=== PATIENT | female | born 1950 | race Caucasian/White ===

== ENCOUNTER 2024-05-14 16:37 | Inpatient (IN) | payer MEDICARE, MEDICAID, SELFPAY ==
[2024-05-14] VITALS (48 sets, daily range): BP systolic 82–126; BP diastolic 35–71; PULSE 64–80; RESP 2–23; TEMP 35.6–37.4; O2SAT 89–100
--- NOTE | 2024-05-14 17:00 | DI.RAD_ITS ---
Exam(s) XR CHEST 2V PA LATERAL EXAM: XR CHEST 2V PA LATERAL CLINICAL HISTORY: cough. TECHNIQUE: 2D digital imaging was performed. COMPARISON: No exams were available for comparison FINDINGS: 2 views: Heart size is normal. The mediastinum is not widened. Lungs are clear. No infiltrates nor pleural effusions. Mild bilateral hyperinflation noted. IMPRESSION: No acute pulmonary findings.Hyperinflation. DATA REPOSITORY: RADIATION DOSE DELIVERED:
--- NOTE | 2024-05-14 17:09 | ED.GENADUL_ITS ---
Discharge Plan Discharge Details Chief Complaint: RespSymp Admit Date/Time: 05/14/24 19:54 Admit Provider: Milton Sullivan Attending Provider: Milton Sullivan Primary Care Provider: Fox Dubois ED Provider: Ar Polanco Discharge Data Discharge Date/Time-TO BE ENTERED AT DEPARTURE: 05/14/24 21:29 HPI General Date/Time Provider Initiated Documentation: 05/14/24 17:03 . HPI Narrative: 73 year-old female presents to ED today by POV/ambulating with her daughter with a chief complaint of 72 hours of flu-like symptoms, weakness, shortness of breath, mild nausea, poor PO intake. Quality described as generalized malaise, no radiation to chest pain, respiratory distress, intractable vomiting, black/bloody diarrhea, high fevers. Severity is described as moderate. Palliating factors include nothing specific attempted. Provoking factors include nothing specific- has sick contacts. Events leading up to the incident/Associated Symptoms: Patient has 40 year smoking history. Patient not anticoagulated. Related Data Home Medications ?Medication ?Instructions ?Recorded ?Confirmed alprazolam 0.5 mg tablet 0.5 mg PO TID 05/14/24 05/14/24 atenolol 50 mg tablet 50 mg PO DAILY 05/14/24 05/14/24 tramadol 50 mg tablet 50 mg PO BID 05/14/24 05/14/24 Allergies Allergy/AdvReac Type Severity Reaction Status Date / Time Sulfa (Sulfonamide Allergy Severe Swelling/Ed Verified 05/14/24 17:06 Antibiotics) jose erythromycin base Allergy Intermediate unknow Verified 05/14/24 17:06 amoxicillin Allergy Mild Unknown Unverified 05/14/24 17:06 clavulanic acid Allergy Mild Unknown Unverified 05/14/24 17:06 meperidine (From Demerol) Allergy Mild Skin Rash Verified 05/14/24 17:06 morphine Allergy Mild Unknown Verified 05/14/24 17:06 NSAIDS (Non-Steroidal AdvReac Intermediate GI Bleeding Verified 05/14/24 17:06 Anti-Inflamma General Stated Complaint: RespSymp RUTHIE: 3 Review of Systems All systems reviewed & are unremarkable except as noted in HPI and below Exam Narrative Exam Narrative: GENERAL APPEARANCE: Well-nourished, non-toxic, awake and alert, atraumatic, no acute distress. SKIN: Warm, pink, dry, intact, without rashes/lesions/ulcerations. HEAD: Normocephalic, atraumatic, normal hair distribution for gender/age. EYES: Normal conjunctiva, no exudates on lids/lashes. ENT: Nares patent, no circumoral cyanosis, no facial swelling NECK: Supple, trachea midline, painless cervical ROM. LUNGS/CHEST: Lungs - rhonchorous at bases, mild expiratory wheezes, non-labored respirations, normal A/P diameter, symmetrical expansion, no chest wall deformity HEART (CV/PV): Regular rate and rhythm without murmur, no peripheral edema, no JVD. ABDOMEN: Soft, non-distended, no guarding. MSK: Normal ROM, no swelling/deformity to bilateral UEs or LEs, moving all extremities without weakness, no cyanosis, spine midline without tenderness, normal curvature. NEURO: Mental Status AAOx4 - alert to person, place, time, events No facial droop, no forehead involvement. Motor: No focal weakness - strength 5/5 in bilateral UEs and LEs, proximal and distal, symmetric. Sensory: sensation intact to light touch globally. Gait normal: patient ambulated without ataxia into ED room. PSYCH: euthymic, cooperative, pleasant, appropriate speech Course Vital Signs Vital signs: Vital Signs Temperature 37.4 C 05/14/24 16:55 Pulse 73 05/14/24 16:55 Respiratory Rate 23 05/14/24 16:55 Blood Pressure 107/71 05/14/24 16:55 Pulse Oximetry 89 L 05/14/24 16:55 Temperature 37.4 C 05/14/24 16:55 Temperature Source Oral 05/14/24 16:55 Pulse 73 05/14/24 16:55 Respiratory Rate 23 05/14/24 16:55 Blood Pressure 107/71 05/14/24 16:55 Blood Pressure Position Sitting 05/14/24 16:55 Pulse Oximetry 89 L 05/14/24 16:55 Oxygen Delivery Method Room Air 05/14/24 16:55 Oxygen Flow Rate 0 05/14/24 16:55 Pain Level 0 05/14/24 16:55 Medical Decision Making This dictation utilizes [id number] dictation software and may contain unedited grammatical errors. 73 year-old female presents to ED today by POV/ambulating with her daughter with a chief complaint of 72 hours of flu-like symptoms, weakness, shortness of breath, mild nausea, poor PO intake. Quality described as generalized malaise, no radiation to chest pain, respiratory distress, intractable vomiting, black/bloody diarrhea, high fevers. Severity is described as moderate. Palliating factors include nothing specific attempted. Provoking factors include nothing specific- has sick contacts. Events leading up to the incident/Associated Symptoms: Patient has 40 year smoking history. Patients' medical history: Denies known COPD. Family and social history: 40-year smoking history. Pertinent exam findings / vital signs include diffuse rhonchi at bases, mild expiratory wheezes, hypoxia, mildly soft blood pressure, benign abdomen, neuro intact, no fever. Differential / pathologies of concern include COPD exacerbation, pneumonia, viral syndrome, hypoxic respiratory failure. Diagnostic studies of: -CBC, VBG, lactate, CMP, magnesium, lipase, COVID/flu/RSV PCR, chest x-ray. -CBC shows no leukocytosis, no left shift -VBG shows no respiratory acidosis or alkalosis -Lactate negative -CMP is unremarkable -Magnesium within normal is -Lipase negative -COVID/flu/RSV negative -Chest x-ray shows no pneumonia shows likely COPD Interventions of: -DuoNeb, IV methylprednisolone, O2 by SD. ED Course/Assessment/Plan: 73-year-old female presents with shortness of breath, is found to be hypoxic at 88% at rest, has a 4-year smoking history, negative for pneumonia on chest x- ray, no evidence of flu or COVID, she may have acute viral syndrome exacerbated by her long-term smoking history, diagnosis of acute hypoxic respiratory failure COPD exacerbation, I spoke with Dr. Sullivan who admitted the patient at 1945. Patient receiving maintenance fluids, will get PO antibiotics on the floor. Disposition of COPD exacerbation, acute hypoxic respiratory failure. Patient verbalized understanding of the plan and return to ED criteria and engaged in shared decision making. Medical Records Medical records reviewed: Yes I reviewed the patient's medical records. Imaging Data Radiologic Study: Attestation: I personally reviewed and interpreted this imaging study as follows: Imaging: X-Ray Radiologist's impression: Exam: XR Chest Exam date and time: 05/14/2024 5:43 PM Age: 73 years old Clinical indication: Other: Coiugh TECHNIQUE: Imaging protocol: Radiologic exam of the chest. Views: 2 views. COMPARISON: No relevant prior studies available. FINDINGS: Lungs: The lungs are slightly hyperaerated. There is increase in the retrosternal airspace. On the lateral view there appears to be some flattening of the hemidiaphragms. Suspect COPD. Pleural spaces: Unremarkable. No pleural effusion. No pneumothorax. Heart/Mediastinum: Unremarkable. No cardiomegaly. Bones/joints: Unremarkable. IMPRESSION: No evidence for acute abnormality in the chest. Probable COPD. Dictated and Authenticated by: Chaparrita Gunn MD. Lab Data Lab results reviewed: Yes I reviewed the patient's lab results. Labs: Laboratory Tests Range/Units 05/14/24 05/14/24 17:14 17:22 WBC (4.4-10.8) 10^3/uL 7.96 RBC (3.93-5.22) 10^6/uL 4.27 Hgb (11.2-15.7) g/dL 13.8 Hct (36.0-46.0) % 41.6 MCV (80-95) fL 97 H MCH (27.0-33.0) pg 32.3 MCHC (32.0-36.0) % 33.2 RDW (11.7-14.6) % 11.9 Plt Count (130-400) 10^3/uL 286 MPV (8.0-11.0) fL 8.7 Immature Gran % % 0.3 Neutrophils % % 59.6 Lymphocytes % % 25.1 Monocytes % % 12.6 Eosinophils % % 1.9 Basophils % % 0.5 Nucleated RBC % (0.0-0.3) % 0.0 Absolute Neutrophils (1.2-6.7) 10^3/uL 4.75 Absolute Lymphocytes (1.2-3.4) 10^3/uL 2.00 Absolute Monocytes (0.1-0.8) 10^3/uL 1.00 H Absolute Eosinophils (0.0-0.7) 10^3/uL 0.15 Absolute Basophils (0.0-0.2) 10^3/uL 0.04 VBG pH (7.31-7.41) 7.39 VBG pCO2 (41-51) mmHg 51 VBG pO2 mmHg 28 VBG HCO3 (23-28) mmol/L 30 H VBG Total CO2 (24-29) mmol/L 27 VBG O2 Saturation % 52 VBG Base Excess (-2-3) mmol/L 5 H VBG Lactate (<or=2.0) mmol/L 0.7 Sodium (136-145) mmol/L 141 Potassium (3.5-5.1) mmol/L 4.2 Chloride (98-107) mmol/L 104 Carbon Dioxide (21.0-32.0) mmol/L 32.0 Anion Gap (3-11) mmol/L 5.0 BUN (7-18) mg/dL 12 Creatinine (0.55-1.02) mg/dL 0.8 Est GFR (CKD-EPI 2020) (mL/min/1.73m2) 78.24 Glucose (74-106) mg/dL 96 Calcium (8.5-10.1) mg/dL 9.1 Magnesium (1.8-2.4) mg/dL 2.3 Total Bilirubin (0.2-1.0) mg/dL 0.40 AST (15-37) U/L 13 L ALT (14-59) U/L 23 Alkaline Phosphatase (46-116) U/L 97 Total Protein (6.4-8.2) g/dL 7.3 Albumin (3.4-5.0) g/dL 3.2 L Lipase (<78) U/L 21 COVID-19 Source Nasopharynx SARS-CoV-2 (PCR) (Negative) Negative Influenza Type A (PCR) (Negative) Negative Influenza Type B (PCR) (Negative) Negative RSV (PCR) (Negative) Negative Quality:SDOH Health Related Social Needs: No Data to Display PFSH All Active Problems (Updated 05/14/24 @ 19:52 by Milton Sullivan MD) COPD (chronic obstructive pulmonary disease) (Chronic) Social History Smoking/Tobacco Use Status: Former Tobacco Use Quit Date: 04/05/24 Tobacco: How many years used: 40 Smoking risk assessment performed?: Yes Alcohol Intake: never Drug use: Never
[2024-05-14 17:31] LABS: Abs Immature Grans 0.02 10^3/uL (0.0-0.06); Absolute Basophil Count 0.04 10^3/uL (0.0-0.2); Absolute Eosinophil Count 0.15 10^3/uL (0.0-0.7); Absolute Neutrophil Count 4.75 10^3/uL (1.2-6.7); BE (Venous) 5 mmol/L (-2-3); Basophils % 0.5 %; Eosinophils % 1.9 %; HCO3 (Venous) 30 mmol/L (23-28); HCT 41.6 % (36.0-46.0); HGB 13.8 g/dL (11.2-15.7); Immature Grans % 0.3 %; Lactate 0.7 mmol/L (<or=2.0); Lymphocytes % 25.1 %; MCH 32.3 pg (27.0-33.0); MCHC 33.2 % (32.0-36.0); MCV 97 fL (80-95); MPV 8.7 fL (8.0-11.0); Monocytes % 12.6 %; Neutrophils % 59.6 %; O2 Sat (Venous) 52 %; Platelet Count 286 10^3/uL (130-400); RBC 4.27 10^6/uL (3.93-5.22); RDW 11.9 % (11.7-14.6); RDW-SD 43.2 fL; TCO2 (Venous) 27 mmol/L (24-29); WBC 7.96 10^3/uL (4.4-10.8); pCO2 (Venous) 51 mmHg (41-51); pH (Venous) 7.39 (7.31-7.41); pO2 (Venous) 28 mmHg
[2024-05-14 17:56] LABS: ALT 23 U/L (14-59); AST 13 U/L (15-37); Albumin 3.2 g/dL (3.4-5.0); Alkaline Phosphatase 97 U/L (46-116); BUN 12 mg/dL (7-18); CREATININE 0.8 mg/dL (0.55-1.02); Calcium 9.1 mg/dL (8.5-10.1); Chloride 104 mmol/L (98-107); Estimated GFR 78.24 (mL/min/1.73m2); Glucose 96 mg/dL (74-106); Lipase 21 U/L (<78); Magnesium 2.3 mg/dL (1.8-2.4); Potassium 4.2 mmol/L (3.5-5.1); Sodium 141 mmol/L (136-145); Total Protein 7.3 g/dL (6.4-8.2)
[2024-05-14 17:56] LABS: COVID-19 PCR Negative (Negative); Influenza A PCR Negative (Negative); Influenza B PCR Negative (Negative); RSV PCR Negative (Negative)
[2024-05-14] MEDS: Albuterol/Ipratropium 3 ML UPD VIAL UPD ×2 (18:03→22:00)
[2024-05-14] MEDS: Acetaminophen 500 MG TAB 1000 MG PO (18:03)
[2024-05-14 18:10] LABS: Source Nasopharynx
--- NOTE | 2024-05-14 18:40 | DI.VRAD_ITS ---
PROCEDURE INFORMATION: Exam: XR Chest Exam date and time: 05/14/2024 5:43 PM Age: 73 years old Clinical indication: Other: Coiugh TECHNIQUE: Imaging protocol: Radiologic exam of the chest. Views: 2 views. COMPARISON: No relevant prior studies available. FINDINGS: Lungs: The lungs are slightly hyperaerated. There is increase in the retrosternal airspace. On the lateral view there appears to be some flattening of the hemidiaphragms. Suspect COPD. Pleural spaces: Unremarkable. No pleural effusion. No pneumothorax. Heart/Mediastinum: Unremarkable. No cardiomegaly. Bones/joints: Unremarkable. IMPRESSION: No evidence for acute abnormality in the chest. Probable COPD. Dictated and Authenticated by: Chaparrita Gunn MD. Orderin Collin Joyner MD
[2024-05-14] MEDS: Normal Saline 1,000 ML 150 ML IV (18:48)
[2024-05-14] MEDS: methylPREDNISolone SUCC 125 MG VIAL IVP (18:48)
--- NOTE | 2024-05-14 19:45 | HPE_ITS ---
Date of service: 05/14/24 Time of Service: 19:45 Assessment and Plan Assessment and plan (1) COPD (chronic obstructive pulmonary disease): Status: Chronic Assessment and plan: COPD, apparently a new diagnosis. Don't see any LRI but will call a bronchitis. Will continue nebs and steroids and add oral antibiotics (states she has taken Zithro without trouble). After stabilizes would benefit from PFTS to formally establish diagnosis. Reviewed ADs, requests Full Code. History of Present Illness History of Present Illness Chief Complaint: SOB, cough Narrative: 73 female long time smoker, reports one week of productive cough, chest tightness, runny nose, sore throat, anorexia. Has an oximeter at home (from [employer]), usual sats high 90s, noted to now be high 80s so came to ER for evaluation. Here in ER findings of note for temp 37.4, sats variable from high 80s to mid-90s, requiring supplemental O2; reported modest wheeze; white count 7 and negative CXR. Viral swab triple negative. Given duoneb and Solumedrol. I was asked to evaluate for admission. States she feels less tight, though not back to baseline. States she has never been given a diagnosis of COPD. My review of CXR shows hyperinflation and some flattening right hemidiaphragm. Review of Systems Narrative: per HPI PFSH All Active Problems (Updated 05/14/24 @ 19:52 by Milton Sullivan MD) COPD (chronic obstructive pulmonary disease) (Chronic) Social History Smoking/Tobacco Use Status: Former Tobacco Use Quit Date: 04/05/24 Tobacco: How many years used: 40 Smoking risk assessment performed?: Yes Alcohol Intake: never Drug use: Never Meds Allergies and Home Medications Allergies Allergy/AdvReac Type Severity Reaction Status Date / Time Sulfa (Sulfonamide Allergy Severe Swelling/Ed Verified 05/14/24 17:06 Antibiotics) jose erythromycin base Allergy Intermediate unknow Verified 05/14/24 17:06 amoxicillin Allergy Mild Unknown Unverified 05/14/24 17:06 clavulanic acid Allergy Mild Unknown Unverified 05/14/24 17:06 meperidine (From Demerol) Allergy Mild Skin Rash Verified 05/14/24 17:06 morphine Allergy Mild Unknown Verified 05/14/24 17:06 NSAIDS (Non-Steroidal AdvReac Intermediate GI Bleeding Verified 05/14/24 17:06 Anti-Inflamma Home Medications ?Medication ?Instructions ?Recorded ?Confirmed ?Type alprazolam 0.5 mg tablet 0.5 mg PO TID 05/14/24 05/14/24 History atenolol 50 mg tablet 50 mg PO DAILY 05/14/24 05/14/24 History tramadol 50 mg tablet 50 mg PO BID 05/14/24 05/14/24 History Exam Narrative Exam Narrative: 126/49, 79, 37.4, 16, 90 (2L). HEENT atraumatic; neck supple; lungs diffuse coarse wheeze; heart RRR; abdomen soft and NT; extremities w/o edema; neuro Ox3, lucid, moves all 4s Results Labs 05/14/24 17:22 05/14/24 17:22 Labs: Laboratory Results - last 24 hr 05/14/24 05/14/24 17:14 17:22 WBC 7.96 RBC 4.27 Hgb 13.8 Hct 41.6 MCV 97 H MCH 32.3 MCHC 33.2 RDW 11.9 Plt Count 286 MPV 8.7 Immature Gran % 0.3 Neutrophils % 59.6 Lymphocytes % 25.1 Monocytes % 12.6 Eosinophils % 1.9 Basophils % 0.5 Nucleated RBC % 0.0 Absolute Neutrophils 4.75 Absolute Lymphocytes 2.00 Absolute Monocytes 1.00 H Absolute Eosinophils 0.15 Absolute Basophils 0.04 VBG pH 7.39 VBG pCO2 51 VBG pO2 28 VBG HCO3 30 H VBG Total CO2 27 VBG O2 Saturation 52 VBG Base Excess 5 H VBG Lactate 0.7 Sodium 141 Potassium 4.2 Chloride 104 Carbon Dioxide 32.0 Anion Gap 5.0 BUN 12 Creatinine 0.8 Est GFR (CKD-EPI 2020) 78.24 Glucose 96 Calcium 9.1 Magnesium 2.3 Total Bilirubin 0.40 AST 13 L ALT 23 Alkaline Phosphatase 97 Total Protein 7.3 Albumin 3.2 L Lipase 21 COVID-19 Source Nasopharynx SARS-CoV-2 (PCR) Negative Influenza Type A (PCR) Negative Influenza Type B (PCR) Negative RSV (PCR) Negative Last Vital Signs Temp 37.4 C 05/14/24 17:34 Pulse 79 05/14/24 19:40 Resp 16 05/14/24 19:40 BP 126/49 L 05/14/24 19:31 Pulse Ox 90 L 05/14/24 19:40 Time Spent Time spent with Patient: 40-54 minutes Time was spent: preparing to see the patient(eg.review tests), obtaining and/or reviewing separately otained hiistory, ordering medications,tests, procedures, referring, communicating with other health prompt care rn and indepentently interpreting results
[2024-05-14] MEDS: Azithromycin 250 MG TAB PO (22:21)
[2024-05-14] MEDS: ALPRAZolam 0.5 MG TAB PO (22:21)
[2024-05-15 02:00] VITALS: PULSE 77; RESP 18; RESP 2; RESP 9; O2SAT 98
[2024-05-15] MEDS: Albuterol/Ipratropium 3 ML UPD VIAL UPD ×2 (02:00→08:05)
[2024-05-15 02:07] VITALS: PULSE 76; RESP 18; RESP 2; RESP 9; O2SAT 97
[2024-05-15 02:15] VITALS: O2SAT 97
[2024-05-15] MEDS: Normal Saline 1,000 ML 150 ML IV (02:41)
--- NOTE | 2024-05-15 03:15 | W.PC.ACHO ---
Registration Status: Primary Language: Preferred Language: ED Information & Data Chief Complaint RespSymp 05/14/24 17:10 Triage Note Pt has been experiencing 05/14/24 16:55 fever and flu-like symptoms. Pt has been around children with flu, norovirus, Covid, and pneumonia. Pt has been taking tylenol. Pt reports she has productive cough, yellow sal. Pt concerned she may have pneumonia. Pt former smoker as a week ago. Most Recent Vital Signs Temperature 35.6 C L 05/14/24 21:35 Temperature Source Temporal Artery Scan 05/14/24 21:35 Pulse 76 05/15/24 02:07 Pulse Rhythm Regular 05/14/24 21:32 Pulse 75 05/14/24 21:10 Respiratory Rate 18 05/15/24 02:07 Respiratory Effort Non-Labored 05/14/24 21:32 Respiratory Depth Normal 05/14/24 21:32 Respiratory Pattern Normal 05/14/24 21:32 Blood Pressure 116/65 05/14/24 21:35 Blood Pressure Mean 64 05/14/24 21:01 Blood Pressure Position Sitting 05/14/24 16:55 Pulse Oximetry 97 05/15/24 02:15 Respiratory End-tidal CO2 39 05/14/24 21:10 Oxygen Delivery Method Nasal Cannula 05/15/24 02:15 Oxygen Flow Rate 1 05/15/24 02:15 Pain Level 8 05/14/24 18:03 Comment map 80 05/14/24 21:[address] Sullivan aware of BP; pt asymptomatic, lying supine, resting. 05/14/24 20:31 Allergies Sulfa (Sulfonamide Antibiotics) Allergy (Severe, Verified 05/14/24 17:06) Swelling/Edema erythromycin base Allergy (Intermediate, Verified 05/14/24 17:06) unknow amoxicillin Allergy (Mild, Unverified 05/14/24 17:06) Unknown clavulanic acid Allergy (Mild, Unverified 05/14/24 17:06) Unknown meperidine (From Demerol) Allergy (Mild, Verified 05/14/24 17:06) Skin Rash morphine Allergy (Mild, Verified 05/14/24 17:06) Unknown NSAIDS (Non-Steroidal Anti-Inflamma Adverse Reaction (Intermediate, Verified 05/14/24 17:06) GI Bleeding Precautions Isolation Droplet precaution 05/14/24 17:00 Active Medications Generic Name Dose Route Start Last Admin Trade Name Nate PRN Reason Stop Dose Admin Albuterol/Ipratropium 3 ml 05/14/24 20:00 05/15/24 02:00 Albuterol/Ipratropium 3 Ml Upd Vial UPD 3 ml Q6H REBEKAH Administration Alprazolam 0.5 mg 05/14/24 22:00 05/14/24 22:21 Alprazolam 0.5 Mg Tab PO 0.5 mg TID REBEKAH Administration Azithromycin 250 mg 05/14/24 22:00 05/14/24 22:21 Azithromycin 250 Mg Tab PO 250 mg HS REBEKAH Administration Sodium Chloride 1,000 mls @ 150 mls/hr 05/14/24 18:45 05/15/24 02:41 Saline 1000ml Bag IV 150 mls/hr INFUSION REBEKAH Administration Tramadol HCl 50 mg 05/14/24 22:00 05/14/24 23:07 Tramadol 50 Mg Tab PO Not Given BID REBEKAH IV IV Catheter Type [Left Peripheral IV Antecubital] IV Catheter Gauge [Left 18 Antecubital] Diet Orders Category Date Time Status Regular/Normal [DIET] Nutrition 05/15/24 Breakfast Active Diagnostics 05/14/24 05/14/24 Range/Units 17:22 17:14 WBC 7.96 (4.4-10.8) 10^3/uL RBC 4.27 (3.93-5.22) 10^6/uL Hgb 13.8 (11.2-15.7) g/dL Hct 41.6 (36.0-46.0) % MCV 97 H (80-95) fL MCH 32.3 (27.0-33.0) pg MCHC 33.2 (32.0-36.0) % RDW 11.9 (11.7-14.6) % Plt Count 286 (130-400) 10^3/uL MPV 8.7 (8.0-11.0) fL Immature Gran % 0.3 % Neutrophils % 59.6 % Lymphocytes % 25.1 % Monocytes % 12.6 % Eosinophils % 1.9 % Basophils % 0.5 % Nucleated RBC % 0.0 (0.0-0.3) % Absolute Neutrophils 4.75 (1.2-6.7) 10^3/uL Absolute Lymphocytes 2.00 (1.2-3.4) 10^3/uL Absolute Monocytes 1.00 H (0.1-0.8) 10^3/uL Absolute Eosinophils 0.15 (0.0-0.7) 10^3/uL Absolute Basophils 0.04 (0.0-0.2) 10^3/uL VBG pH 7.39 (7.31-7.41) VBG pCO2 51 (41-51) mmHg VBG pO2 28 mmHg VBG HCO3 30 H (23-28) mmol/L VBG Total CO2 27 (24-29) mmol/L VBG O2 Saturation 52 % VBG Base Excess 5 H (-2-3) mmol/L VBG Lactate 0.7 (<or=2.0) mmol/L Sodium 141 (136-145) mmol/L Potassium 4.2 (3.5-5.1) mmol/L Chloride 104 (98-107) mmol/L Carbon Dioxide 32.0 (21.0-32.0) mmol/L Anion Gap 5.0 (3-11) mmol/L BUN 12 (7-18) mg/dL Creatinine 0.8 (0.55-1.02) mg/dL Est GFR (CKD-EPI 2020) 78.24 (mL/min/1.73m2) Glucose 96 (74-106) mg/dL Calcium 9.1 (8.5-10.1) mg/dL Magnesium 2.3 (1.8-2.4) mg/dL Total Bilirubin 0.40 (0.2-1.0) mg/dL AST 13 L (15-37) U/L ALT 23 (14-59) U/L Alkaline Phosphatase 97 (46-116) U/L Total Protein 7.3 (6.4-8.2) g/dL Albumin 3.2 L (3.4-5.0) g/dL Lipase 21 (<78) U/L COVID-19 Source Nasopharynx SARS-CoV-2 (PCR) Negative (Negative) Influenza Type A (PCR) Negative (Negative) Influenza Type B (PCR) Negative (Negative) RSV (PCR) Negative (Negative) [id number] Documentation Fingerstick Glucose Start: 05/14/24 18:36 Freq: Status: Active Protocol: Activity Type Activity Date Activity User E-sign Co-sign Detail Recorded Client Recorded Date Recorded By Document 05/14/24 18:35 BKG DAEMON(3) [id number] 05/14/24 18:36 BKG DAEMON(4) Intake and Output - 24 Hour Total 05/14/24 16:37 thru 05/15/24 02:35 Intake Total 1020 Balance 1020 Weight 71.214 kg Intake: IV 1020 Other: Urine Color Yellow Urine Appearance Clear Falls Risk Assessment History of Falls No History 05/14/24 21:32 Contributing Factors No Factors 05/14/24 21:32 Ambulatory Aids Independent 05/14/24 21:32 Tubes/Lines W/no contributing factors 05/14/24 21:32 Gait Evaluation No gait disturbance 05/14/24 21:32 Cognition No cognitive impairment 05/14/24 21:32 Fall Total Score 10 05/14/24 21:32 Level of Risk Standard/Low Risk 05/14/24 21:32 Problems (Last Reviewed 05/14/24 @ 19:50 by Milton Sullivan MD) COPD (chronic obstructive pulmonary disease) (Chronic) v v v v v v v v v Sending and/or Receiving Nurses: Please use comment section below to note any information pertinent to the patient hand-off not included above. Information / Comments: coughing up yellow sputum, feeling winded quit smoking about a week ago xray shows signs of COPD, neg for pneumonia blood work neg, swabs, neg arrived with O2Sat of 88%, on 2L NC Satting 93-94%, pt states baseline is 99% ra A&O, not dizzy, broke elbow awhile ago and hasn't regained strength back, states this is the weakest she's ever been could use a PT consult NSR with good pulses RR regular, non-labored BP soft 111/43 running NS @ 150mls/hr 18g LAC Report received from: Marisol RN @ [id number]
[2024-05-15] MEDS: methylPREDNISolone SUCC 40 MG VIAL IVP (06:36)
[2024-05-15] MEDS: Normal Saline Flush 10 ML SYR IVP (06:36)
[2024-05-15 07:40] VITALS: BP 121/63; PULSE 77; RESP 19; TEMP 36.2; O2SAT 95
[2024-05-15 08:05] VITALS: PULSE 88; RESP 16; RESP 2; RESP 9; O2SAT 97
[2024-05-15 08:14] VITALS: PULSE 80
[2024-05-15] MEDS: traMADol 50 MG TAB PO (08:22)
[2024-05-15] MEDS: ALPRAZolam 0.5 MG TAB PO (08:39)
--- NOTE | 2024-05-15 09:04 | PDOC.CMIN ---
Date of service: 05/15/24 Time of Service: 09:05 Care Management Initial Assmt Initial Assessment Reason for Hospitalization: COPD Functional Status/Living Situation Patient Presentation: Patricia presented to the ED yesterday evening with c/o one week of productive cough, chest tightness, runny nose, loss of appetite. Per her home oximeter her O2 sats were in the high 80s, so she presented to the ER. Patricia reported to that she has been living with her daughter and 4 children who are school aged and all sick. Patricia was sitting up on the edge of the bed when met with her. She has many community concerns. Patricia is recently homeless, and has been staying with her daughter, here in [facility], in her subsidized apartment. 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 Patricia has many concerns over loss of her apartment and car. Town of Residence: [place], [place] Significant Other/Family: Local (daughters Xiomy and Brit) Natural Supports: daughter and her family Employment Status: Disabled Instrumental Activities of Daily Living (ADLs): Independent Activities/Hobbies/SocialSupport: likes photography and hiking Medications Medication Management: No Issues/Barriers identified Advance Directives Advance Directives: Do you have an Advance Directive: AD On File at [facility]: N 05/14/24 16:38 Date Asked 05/14/24 05/14/24 16:50 AD Date Reviewed COLST On File at [facility] COLST Date Scanned Code Status Resuscitation Status Full Code Insurance Coverage/Financial Issues Insurance: Medicare Part A & B [facility] Dual MCR/AMOL plan Financial Issues: as above Care Team Visit Care Team Role Provider Type Fox Dubois DO Primary Care Provider CONSULTING PHYSICIAN JOEY Michael Emergency Provider PHYSICIANS PATIENT SAFETY SITTER Milton Sullivan MD Admit Provider [facility] STAFF PHYSICIAN Attending Provider Discharge Potential Discharge Needs: PCP F/U Appt and Other (establish with a wafer polishing lead worker) Anticipated Barriers to Discharge: None Identified Patient/Family Education Needs: Review discharge instructions, discuss Ask Me Three Transportation: Private vehicle Plan: Patricia was discharged home with no new services. She was given many resources by JODEE - Robert, JAVI, NEAL - referral sent-, COA, ip litigation paralegal. She will f/u with her PCP and establish with a wafer polishing lead worker. She was transported home by her daughter. Social Determinants of Health Screening Social Determinants of Health last assessed: 05/15/24 Will the Patient Participate in the Screening?: Declined to provide Do you worry about having a steady place to live?: no Problems where you live: no known problems In the past 12 months, have you had to go without electric, gas, oil or water in your home?: no Have you or anyone in your house had to go without enough food to eat?: no Has lack of transportation kept you from medical appointments or from doing things needed for daily living?: no Has anyone in your life made you feel unsafe or unsupported?: no How hard is it for you to pay for the very basics like food, housing, medical care, and heating? Would you say it is:: Not hard at all Do you want help finding or keeping work or a job?: I do not need or want help If for any reason you need help with day-to-day activities such as bathing, preparing meals, shopping, managing finances, etc., do you get the help you need?: I don?t need any help How often do you feel lonely or isolated from those around you?: Never Do you speak a language other than Somali at home?: No Does the patient want assistance with any of the above?: No Social Determinants of Health Comments(SDNC Details): would like to answer during the day [facility] All Active Problems (Updated 05/14/24 @ 19:52 by Milton Sullivan MD) COPD (chronic obstructive pulmonary disease) (Chronic) Social History Smoking/Tobacco Use Status: Former Tobacco Use Quit Date: 04/05/24 Tobacco: How many years used: 40 Smoking risk assessment performed?: Yes Alcohol Intake: never Drug use: Never Readmission Within the Past 30 Days Yes or No: No
[2024-05-15] MEDS: predniSONE 20 MG TAB 40 MG PO (09:46)
[2024-05-15] MEDS: Atenolol 50 MG TAB 25 MG PO (09:46)
[2024-05-15] MEDS: Umeclidinium 7 CAP INHALER 1 CAP IH (11:46)
[2024-05-15] MEDS: Albuterol HFA 8 GM 60 PUFF INH IH (11:46)
--- NOTE | 2024-05-15 13:39 | DSE_ITS ---
Date of service: 05/15/24 Time of Service: 13:39 DS: Diagnosis Discharge Diagnosis (1) COPD (chronic obstructive pulmonary disease): Status: Chronic Discharge Plan Disposition Patient Disposition: Home Condition: Good Discharge Details Reason For Visit: COPD Admit Date/Time: 05/14/24 19:54 Admit Provider: Milton Sullivan Attending Provider: Milton Sullivan [facility] Course: 73 female smoker with possible history of asthma, presented with one week of productive cough, chest tightness, runny nose, sore throat, anorexia. Has an oximeter at home (from [employer]), usual sats high 90s, noted to now be high 80s so came to ER for evaluation. She was initially hypoxic and CXR showed hyperinflation but no focal infiltrate. She was admitted for presumed COPD exacerbation with steroids, nebs, and azithromycin. She was stable off oxygen the next day and discharged to complete a 5 day course of therapy. She was started on the LAMA Incruse as a controller and also given albuterol MDI with spacer, teaching reviewed by respirator therapy. Outpatient PFTs were ordered for 3 weeks out once she recovered to confirm COPD vs Asthma. She expressed several concerns unrelated to her respiratory illness, including an old right arm injury, a coccyx injury, unstable housing living with her daughter, and loss of her vehicle. She was able to speak with care management regarding resources. She was only taking 25mg atenolol chronically as she feels dizzy on higher dose. She is on atenolol because it also helps her anxiety, states she ended up on the hospital when they tried to switch her medication in the past. Home Meds and New Rx's Prescriptions: New azithromycin 250 mg Tablet 250 mg PO HS Qty: 4 0RF prednisone 20 mg Tablet 40 mg PO DAILY Qty: 4 0RF atenolol 50 mg Tablet 25 mg PO DAILY Qty: 90 0RF Incruse Ellipta 62.5 mcg/actuation blister with device 1 inh inhalation DAILY Qty: 30 0RF (DME) Aerochamber Mini Spacer See Rx Instructions .Route Qty: 1 0RF Rx Instructions: As directed albuterol sulfate 90 mcg/actuation HFA aerosol inhaler 2 puff inhalation QID PRN (Reason: shortness of breath or wheezing) Qty: 8.5 0RF Rx Instructions: use with spacer Continued tramadol 50 mg tablet 50 mg PO BID alprazolam 0.5 mg tablet 0.5 mg PO TID Discontinued atenolol 50 mg tablet 50 mg PO DAILY Discharge Instructions Instructions: Chronic Obstructive Pulmonary Disease (COPD) (DC) Additional Instructions: take the 4 more days of antibiotics and prednisone use the new daily inhaler and the rescue inhaler You need lung function tests once you are feeling better. We ordered these to be done back at the hospital as an outpatient. Stand Alone Forms: Nursing Discharge Form Referrals: Fox Dubois DO [Primary Care Provider] - 05/22/24 10:30 am Activity:: Activity as Tolerated Equipment/Supplies:: No Equipment Needed Diet:: As Tolerated Discharge Orders Discharge Orders: Discharge Order (Routine); Ordered 05/15/24 Ordered By: Fox Vega Other Ambulatory Orders: PFT ([place]/[facility]umes) (Routine) Timeframe: 3 Weeks Location: None Selected Ordered By: Fox Vega DS: Summary Time Spent with Patient providing and/or coordinating discharge services: Greater than 30 minutes Status at Discharge Functional status at discharge: independent ambulation Overall status at discharge: patient is progressing back to baseline Mental Status: mental status grossly normal Speech and Movement: speech and movement normal Mood: anxious mood Affect: anxious affect Quality:SDOH Health Related Social Needs: No Data to Display Exam Narrative Exam Narrative: Gen: Alert and oriented, NAD, speaking in full sentences without dyspnea. lungs with slight expiratory diffuse wheeze, no rales, normal effort; heart RRR; extremities w/o edema; psych: anxious affect Psych Mental Status: mental status grossly normal Speech and Movement: speech and movement normal Mood: anxious mood Affect: anxious affect DS: Data Vitals/I&O Vitals and I&O: Vital Signs Temperature 36.2 C L 05/15/24 07:40 Temperature Source Tympanic 05/15/24 07:40 Pulse 80 05/15/24 08:14 Pulse Rhythm Regular 05/14/24 21:32 Pulse 75 05/14/24 21:10 Respiratory Rate 16 05/15/24 08:05 Respiratory Effort Non-Labored 05/14/24 21:32 Respiratory Depth Normal 05/14/24 21:32 Respiratory Pattern Normal 05/14/24 21:32 Blood Pressure 121/63 05/15/24 07:40 Blood Pressure Mean 64 05/14/24 21:01 Blood Pressure Position Sitting 05/14/24 16:55 Pulse Oximetry 97 05/15/24 08:05 Respiratory End-tidal CO2 39 05/14/24 21:10 Oxygen Delivery Method Room Air 05/15/24 08:05 Oxygen Flow Rate 0 05/15/24 08:05 Pain Level 8 05/14/24 18:03 Comment map 80 05/14/24 21:[address] Sullivan aware of BP; pt asymptomatic, lying supine, resting. 05/14/24 20:31 Intake & Output 05/14/24 05/15/24 05/15/24 23:59 11:59 23:59 Intake Total 414 / 414 2266 / 2266 Balance 414 / 414 2266 / 2266 Weight 71.214 kg Intake: IV 414 / 414 1606 / 1606 Oral 660 / 660 Other: Urine Color Pale Urine Appearance Clear Urine Odor None Data Completed and Pending Labs on day of discharge: Labs from last 24 hours 05/14/24 05/14/24 17:22 17:14 WBC 7.96 RBC 4.27 Hgb 13.8 Hct 41.6 MCV 97 H MCH 32.3 MCHC 33.2 RDW 11.9 Plt Count 286 MPV 8.7 Immature Gran % 0.3 Neutrophils % 59.6 Lymphocytes % 25.1 Monocytes % 12.6 Eosinophils % 1.9 Basophils % 0.5 Nucleated RBC % 0.0 Absolute Neutrophils 4.75 Absolute Lymphocytes 2.00 Absolute Monocytes 1.00 H Absolute Eosinophils 0.15 Absolute Basophils 0.04 VBG pH 7.39 VBG pCO2 51 VBG pO2 28 VBG HCO3 30 H VBG Total CO2 27 VBG O2 Saturation 52 VBG Base Excess 5 H VBG Lactate 0.7 Sodium 141 Potassium 4.2 Chloride 104 Carbon Dioxide 32.0 Anion Gap 5.0 BUN 12 Creatinine 0.8 Est GFR (CKD-EPI 2020) 78.24 Glucose 96 Calcium 9.1 Magnesium 2.3 Total Bilirubin 0.40 AST 13 L ALT 23 Alkaline Phosphatase 97 Total Protein 7.3 Albumin 3.2 L Lipase 21 COVID-19 Source Nasopharynx SARS-CoV-2 (PCR) Negative Influenza Type A (PCR) Negative Influenza Type B (PCR) Negative RSV (PCR) Negative PFSH All Active Problems (Updated 05/14/24 @ 19:52 by Milton Sullivan MD) COPD (chronic obstructive pulmonary disease) (Chronic) Social History Smoking/Tobacco Use Status: Former Tobacco Use Quit Date: 04/05/24 Tobacco: How many years used: 40 Smoking risk assessment performed?: Yes Alcohol Intake: never Drug use: Never Time Spent with Patient Time Spent with Patient: 45-69 minutes Time was spent: preparing to see the patient(eg.review tests), obtaining and/or reviewing separately otained hiistory, ordering medications,tests, procedures, referring, communicating with other health wound care technician, indepentently interpreting results, counseling the patient and care coordination
== END 2024-05-15 15:21 | disposition home or self-care (01) | DRG 190 ==
LOC: ER 19:07 → MS 21:25
PROVIDERS: Admitting Provider General Practice; Emergency Provider Physician Assistant; PCP Emergency Medicine Undersea and Hyperbaric Medicine; Visit Provider General Practice
DX: J44.1 Chronic obstructive pulmonary disease with (acute) exacerbation (principal); J96.01 Acute respiratory failure with hypoxia; Z59.01 Sheltered homelessness; Z87.891 Personal history of nicotine dependence
CPT/HCPCS: 00123; 36415; 36416; 80053; 82805; 82962; 83690; 87637; 94640; 94761; 96361; 96374; 99283; 71046; 83605; 83735; 85025; 94664; 94760; 99222; 99239; 99285; J2919; J7512; J7620